=== PATIENT | male | born 1975 | race Hispanic/Latino ===

== ENCOUNTER 2018-03-28 09:37 | Emergency (ER) | payer SELFPAY ==
[2018-03-28] MEDS ORDERED: ASPIRIN 325 MG TABLET ONE (10:23)
== END 2018-03-28 11:56 | disposition left against medical advice (07) ==
LOC: EDH 09:37
DX: R07.89 Other chest pain (principal); R20.2 Paresthesia of skin; Z72.0 Tobacco use
CPT/HCPCS: 71045; 93005; 94761